=== PATIENT | male | born 1960 | race Caucasian/White ===

== ENCOUNTER 2017-02-02 01:37 | Emergency (ER) | payer SELFPAY ==
--- NOTE | 2017-02-02 01:52 | EDM.PDOC ---
ED HPI GENERAL MEDICAL PROBLEM - General Chief Complaint: ENT Problem Stated Complaint: ABCESS FROM TOOTH NEAR EYE Time Seen by Provider: 02/02/17 01:51 - History of Present Illness INITIAL COMMENTS - FREE TEXT/NARRATIVE: 56-year-old male presents emergency room with dental pain and swelling. This started about a week ago. His right upper incisor is had some increased swelling and discomfort around it he has a shooting pain that comes up along the side of his nose. He is getting some swelling on the right side of his face up to the bottom of his eye. He's been using warm compresses over to help with the swelling. He denies any fevers or chills and doesn't have that much discomfort associated with. Patient is long-standing diabetes his blood sugars been doing pretty well his need for insulin has not increased. He denies any fevers or chills or sensation of feeling ill. - Related Data Allergies Allergy/AdvReac Type Severity Reaction Status Date / Time No Known Allergies Allergy Verified 02/02/17 01:51 Home Meds: Home Meds Insulin Glarg,Human.Rec.Analog [LantUS Solostar] 10 units SUBCUT BEDTIME [History] glipiZIDE [Glipizide Xl] 5 mg PO DAILY 02/02/17 [History] metFORMIN HCl [Metformin HCl ER] 500 mg PO DAILY 02/02/17 [History] ED ROS ENT - Review of Systems Review Of Systems: See Below Constitutional: Reports: No Symptoms HEENT: Reports: Dental Pain, Other (Right-sided facial swelling) Respiratory: Reports: No Symptoms Cardiovascular: Reports: No Symptoms GI/Abdominal: Reports: No Symptoms Neurological: Reports: No Symptoms ED EXAM, ENT - Physical Exam Exam: See Below Exam Limited By: No Limitations General Appearance: Alert, No Apparent Distress Eye Exam: Bilateral Eye: Other (No globe tenderness on the right he has some swelling up to just below the inferior orbital rim.) Ears: Normal External Exam, Normal Canal, Normal TMs Nose: Normal Inspection, Normal Mucousa Mouth/Throat: Normal Lips, Normal Oropharynx, Other (He's got several bad teeth his right upper incisor is a rough shape he's got surrounding erythema. No obvious abscess) Head: Other (He has some right-sided facial swelling no palpable abscess slightly warm) Neck: Normal Inspection, Non-Tender, Full Range of Motion, Limited Range of Motion. No: Lymphadenopathy (L), Lymphadenopathy (R) Respiratory/Chest: No Respiratory Distress, Lungs Clear, Normal Breath Sounds Cardiovascular: Regular Rate, Rhythm, No Edema, No Murmur Course - Vital Signs Last Recorded V/S: Last Vital Signs Temp 36.7 C 02/02/17 01:48 Pulse 88 02/02/17 01:48 Resp 16 02/02/17 01:48 BP 173/103 H 02/02/17 01:48 Pulse Ox 100 02/02/17 01:48 Departure - Departure Time of Disposition: 02:01 Disposition: Home, Self-Care 01 Clinical Impression: Dental caries - Discharge Information Instructions: Dental Caries, [id number] Forms: ED Department Discharge Additional Instructions: Return to the emergency room with any questions problems worsening symptoms. Follow up with a dentist soon as you can ultimately that is what is needed to fix her teeth. You been started on clindamycin 300 mg #40 from the machine out the waiting room take one every 8 hours until all gone.
== END 2017-02-02 02:13 | disposition home or self-care (01) ==
LOC: JD.ED 01:37 → MERGE 01:37 → JD.ED 02:13
DX: K02.9 Dental caries, unspecified (principal); E11.9 Type 2 diabetes mellitus without complications; Z79.4 Long term (current) use of insulin
CPT/HCPCS: 99283